=== PATIENT | male | born 1955 | race Caucasian/White ===

== ENCOUNTER 2021-09-26 15:58 | Inpatient (IN) | payer OTHER ==
[~2021-09-26] VITALS: Ht 188 cm; Wt 71.8 kg
--- NOTE | ~2021-09-26 | EMS ---
[address] [address] EMS Patient Care Report Name: ROD KHALIL Room #: 244-P ADM IN M.R.#: [id number] Admission: 09/26/21 Attend Phys: Nica Hi MD Discharge: Date of : 53 Report #: [id number] THIS REPORT FOR: //name// Report Transmitted: 09/29/2021 07:57 EMS Care Summary [place], [place]/[facility] Incident [id number] @ 09/26/2021 15:01 Incident Location [address] [facility] 320 Patient ROD KHALIL Male, 66 Years 1955 Patient Address [address] [id number] Patient History Cardiac Arrythmia,Hypertension (HTN),Pacemaker/AICD,Dialysis, Patient Allergies No known allergies,Codeine, Patient Medications Other, Chief Complaint MISSED DYALISIS Disposition Transported No Lights/[place] Dispatch Reason Sick Person Transported To [facility] Narrative MEDIC 30 WAS DISPATCHED TO THE ADDRESS LISTED PREVIOUSLY IN THIS REPORT ON A SICK PATIENT. UPON ARRIVAL, EMS OBSERVED ONE MALE PATIENT SITTING UPRIGHT IN BED. PATIENT HAD NOT COMPLETED HIS LAST THREE DIALYSIS TREATMENTS. PATIENT WAS THEN PLACED ON THE COT AND MOVED TO THE AMBULANCE WITHOUT INCIDENT. ONCE IN THE [address] [address] EMS Patient Care Report Name: ROD KHALIL Room #: 244-P ADM IN R.#: [id number] Admission: 09/26/21 Attend Phys: Nica Hi MD Discharge: Date of : 53 Report #: [id number] AMBULANCE, VITAL SIGN MONITORING CONTINUED. ONCE ENROUTE TO THE RECEIVING FACILITY ([facility] VITAL SIGN MONITORING CONTINUED AND RADIO REPORT WAS GIVEN. UPON ARRIVAL AT THE RECEIVING FACILITY, PATIENT WAS MOVED FROM THE AMBULANCE TO THE HOSPITAL COT WITHOUT INCIDENT. VERBAL REPORT WAS GIVEN TO THE PATIENT'S NURSE AND PATIENT CARE WAS TRANSFERRED. Initial Vitals @15:43P: 93,R: 16,BP: 152/68,Pain: 0/10,GCS: 15,SpO2: 59,Revised Trauma: 12, @15:49P: 88,R: 16,GCS: 15,SpO2: 95, Assessments @15:18MENTAL:Person Oriented,Time Oriented,Event Oriented,Place Oriented,SKIN:HEENT:LUNG SOUNDS:ABDOMEN:PELVIS//GI:EXTREMITIES:PULSE:NEURO: Impression Need for continuous medical supervision Procedures @15:44 Oxygen FlowRate: 8 Device: Nasal Cannula (NC) Response: UnchangedSucceeded @15:18 ALS Assessment Response: UnchangedSucceeded Timeline 14:45,Call Received 14:45,Dispatch Notified 15:01,Dispatched 15:01,En Route 15:14,On Scene 15:18,At Patient 15:18,ALS Assessment,Response: UnchangedSucceeded, 15:43,BP: 152/68 M,PULSE: 93,RR: 16 R,SPO2: 59 Ox,ETCO2: ,BG: ,PAIN: 0,GCS: 15, 15:44,Oxygen FlowRate: 8 Device: Nasal Cannula (NC) Response: UnchangedSucceeded, 15:49,BP: / M,PULSE: 88,RR: 16 R,SPO2: 95 Ox,ETCO2: ,BG: ,PAIN: ,GCS: 15, 15:53,Depart Scene 15:56,At Destination 16:35,Call Closed Disclaimer v1.1 Copyright 2020 [employer] This EMS Care Summary contains data elements from the applicable legal record (which may be displayed differently). It is designed to provide pertinent information for the following purposes: continuity of care, clinical quality, and state data reporting. The complete legal record is available to ED staff and administrators of the receiving hospital in [employer]'s Patient Tracker. All data [address] [address] EMS Patient Care Report Name: ROD KHALIL Room #: 244-P [facility] IN M.R.#: [id number] Admission: 09/26/21 Attend Phys: Nica Hi MD Discharge: Date of : 53 Report #: [id number] is provided "as is."
--- NOTE | ~2021-09-26 | EMS ---
[address] [address] EMS Patient Care Report Name: ROD KHALIL Room #: 244-P ADM IN M.R.#: [id number] Admission: 09/26/21 Attend Phys: Nica Hi MD Discharge: Date of : 53 Report #: [id number] THIS REPORT FOR: //name// Report Transmitted: 10/01/2021 12:57 EMS Care Summary [place], [place]/[facility] Incident [id number] @ 09/26/2021 15:01 Incident Location [id number] [place] [address] 320 Patient ROD KHALIL Male, 66 Years 1955 Patient Address [address] [place] [address] Patient History Cardiac Arrythmia,Hypertension (HTN),Pacemaker/AICD,Dialysis, Patient Allergies No known allergies,Codeine, Patient Medications Other, Chief Complaint MISSED DYALISIS Disposition Transported No Lights/[place] Dispatch Reason Sick Person Transported To [facility] Narrative MEDIC 30 WAS DISPATCHED TO THE ADDRESS LISTED PREVIOUSLY IN THIS REPORT ON A SICK PATIENT. UPON ARRIVAL, EMS OBSERVED ONE MALE PATIENT SITTING UPRIGHT IN BED. PATIENT HAD NOT COMPLETED HIS LAST THREE DIALYSIS TREATMENTS. PATIENT WAS THEN PLACED ON THE COT AND MOVED TO THE AMBULANCE WITHOUT INCIDENT. ONCE IN THE [address] [address] EMS Patient Care Report Name: ROD KHALIL Room #: 244-P ADM IN R.#: [id number] Admission: 09/26/21 Attend Phys: Nica Hi MD Discharge: Date of : 53 Report #: [id number] AMBULANCE, VITAL SIGN MONITORING CONTINUED. ONCE ENROUTE TO THE RECEIVING FACILITY ([facility]), VITAL SIGN MONITORING CONTINUED AND RADIO REPORT WAS GIVEN. UPON ARRIVAL AT THE RECEIVING FACILITY, PATIENT WAS MOVED FROM THE AMBULANCE TO THE HOSPITAL COT WITHOUT INCIDENT. VERBAL REPORT WAS GIVEN TO THE PATIENT'S NURSE AND PATIENT CARE WAS TRANSFERRED. Initial Vitals @15:43P: 93,R: 16,BP: 152/68,Pain: 0/10,GCS: 15,SpO2: 59,Revised Trauma: 12, @15:49P: 88,R: 16,GCS: 15,SpO2: 95, Assessments @15:18MENTAL:Place Oriented,Event Oriented,Time Oriented,Person Oriented,SKIN:HEENT:LUNG SOUNDS:ABDOMEN:PELVIS//GI:EXTREMITIES:PULSE:NEURO: Impression Need for continuous medical supervision Procedures @15:44 Oxygen FlowRate: 8 Device: Nasal Cannula (NC) Response: UnchangedSucceeded @15:18 ALS Assessment Response: UnchangedSucceeded Timeline 14:45,Call Received 14:45,Dispatch Notified 15:01,Dispatched 15:01,En Route 15:14,On Scene 15:18,At Patient 15:18,ALS Assessment,Response: UnchangedSucceeded, 15:43,BP: 152/68 M,PULSE: 93,RR: 16 R,SPO2: 59 Ox,ETCO2: ,BG: ,PAIN: 0,GCS: 15, 15:44,Oxygen FlowRate: 8 Device: Nasal Cannula (NC) Response: UnchangedSucceeded, 15:49,BP: / M,PULSE: 88,RR: 16 R,SPO2: 95 Ox,ETCO2: ,BG: ,PAIN: ,GCS: 15, 15:53,Depart Scene 15:56,At Destination 16:35,Call Closed Disclaimer v1.1 Copyright 2020 [employer] This EMS Care Summary contains data elements from the applicable legal record (which may be displayed differently). It is designed to provide pertinent information for the following purposes: continuity of care, clinical quality, and state data reporting. The complete legal record is available to ED staff and administrators of the receiving hospital in [employer]'s Patient Tracker. All data [address] [address] EMS Patient Care Report Name: ROD KHALIL Room #: 244-P [facility] IN M.R.#: [id number] Admission: 09/26/21 Attend Phys: Nica Hi MD Discharge: Date of : 53 Report #: [id number] is provided "as is."
[2021-09-26 16:21] VITALS: BP 146/64
[2021-09-26 16:56] LABS: ABSOLUTE NEUTROPHILS 5.7 thou/uL (1.4-8.2); BASOPHILS 1.2 % (0.0-2.0); EOSINOPHILS 12.7 % (0.0-3.0); HEMATOCRIT 30.3 % (42.0-52.0); HEMOGLOBIN 9.5 gm/dL (14.0-18.0); LYMPHOCYTES 11.2 % (24.0-44.0); MCH 32.2 pg (26.0-34.0); MCHC 31.3 g/dL (28.0-37.0); PLATELET COUNT 313 thou/uL (150-400); POLYS 67.9 % (36.0-66.0); RBC 2.94 mil/uL (4.50-6.00); RDW 20.7 % (10.5-14.5); WBC 8.4 thou/uL (4.0-11.0)
[2021-09-26 17:17] LABS: ALBUMIN 2.8 g/dL (3.4-5.0); CALCIUM 8.3 mg/dL (8.5-10.1); CREATININE 9.8 mg/dL (0.7-1.3); TOTAL BILIRUBIN 0.4 mg/dL (0.2-1.0); TOTAL PROTEIN 6.4 g/dL (6.4-8.2)
[2021-09-26 17:23] LABS: POTASSIUM 6.6 mmol/L (3.5-5.1)
[2021-09-26] MEDS ORDERED: ACETAMINOPHEN500 M1 PO (17:49)
[2021-09-26] MEDS ORDERED: LIPITOR40 MG PO (17:50)
[2021-09-26] MEDS ORDERED: AMLODIPINE BESY10 MG PO (17:50)
[2021-09-26] MEDS ORDERED: ROCALTROL0.25 MCG PO (17:50)
[2021-09-26] MEDS ORDERED: CALCIUM ACETAT667 MG PO (17:51)
[2021-09-26] MEDS ORDERED: ELIQUIS5 MG PO (17:52)
[2021-09-26] MEDS ORDERED: GABAPENTIN100 MG PO (17:52)
[2021-09-26] MEDS ORDERED: MIRALAX119 GM PO (17:53)
[2021-09-26] MEDS ORDERED: TOPROL XL25 MG PO (17:53)
[2021-09-26] MEDS ORDERED: OXYCODONE HCL5 MG PO (17:54)
[2021-09-26] MEDS ORDERED: SPIRIVA18 MCG INH (17:55)
[2021-09-26] MEDS ORDERED: SYMBICORT160 MCG/4. INH (17:55)
[2021-09-26] MEDS ORDERED: SENNA-DOCUSATE1 EAC1 PO (17:55)
[2021-09-26] MEDS ORDERED: PROAIR HFA8.5 GM INH (17:55)
[2021-09-26 19:09] LABS: ANISOCYTOSIS 1+; MACROCYTES 1+
[2021-09-26 21:16] VITALS: BP 101/37
[2021-09-27] VITALS (9 sets, daily range): BP systolic 123–139; BP diastolic 32–39
[2021-09-27 02:14] LABS: BE(vivo) -3.2 mmol/L (-2 to +3); HCO3 24.3 mmol/L (22.0-26.0); PCO2 57.7 mmHg (35.0-45.0); PO2 67.1 mmHg (80.0-100.0); sO2 89.7 % (92.0-98.0)
[2021-09-27 02:15] LABS: pH 7.243 (7.360-7.450)
[2021-09-27 02:32] LABS: ALBUMIN 2.4 g/dL (3.4-5.0); CALCIUM 8.2 mg/dL (8.5-10.1); CREATININE 10.1 mg/dL (0.7-1.3); DIRECT BILIRUBIN 0.1 mg/dL (<0.1-0.2); TOTAL BILIRUBIN 0.3 mg/dL (0.2-1.0); TOTAL PROTEIN 5.6 g/dL (6.4-8.2)
[2021-09-27 02:37] LABS: POTASSIUM 6.4 mmol/L (3.5-5.1)
[2021-09-27 07:37] LABS: CREATININE 10.4 mg/dL (0.7-1.3)
[2021-09-27 07:42] LABS: POTASSIUM 6.3 mmol/L (3.5-5.1)
--- NOTE | 2021-09-27 08:53 | NUR ---
PT TOLD DIALYSIS NURSE THAT HE WAS TOLD HE TESTED POSITIVE FOR COVID, UPDATED DIALYSIS NURSE THAT PT IS NEGATIVE HERE. CALLED AND SPOKE WITH NURSING STAFF AT [facility] WHO ALSO REPORTS THAT HE WAS TESTED YESTERDAY THERE AND HIS RESULTS ARE ALSO NEGATIVE
--- NOTE | 2021-09-27 11:22 | NUR ---
DIALYSIS NURSE VERÓNICA STATES THAT HE EVALUATED THE PT'S FISTULA AND REPORTS IT WILL NEED DE-COLTTED WHILE HERE, THAT IT IS NOT FUNCTIONING
--- NOTE | 2021-09-27 12:29 | EKG ---
[address] [place] [address] ELECTROCARDIOGRAM REPORT Name: ROD KHALIL Room #: 170-1 ADM IN M.R.#: [id number] Admission: 09/26/21 Attend Phys: Nury Matta MD Discharge: Date of : 53 Report #: [id number] [facility] ED Test Date: 2021-09-26 Test Time: 17:30:08 Pat Name: ROD KHALIL Department: Room: 170 Gender: M Medicare Sales Representative: mpark : 1955 Requested By: Kanchan Su Order Number: [id number] MD: Fabián Yeh Measurements Intervals [place] Rate: 60 P: AR: 310 QRS: -76 QRSD: 126 T: -54 QT: 463 QTc: 463 Interpretive Statements Atrial-paced rhythm Nonspecific IVCD with LAD LVH with secondary repolarization abnormality No previous ECG available for comparison Electronically Signed On 09-27-2021 12:29:27 RED CROSS EXECUTIVE DIRECTOR by Fabián Yeh [email or web address] <ELECTRONICALLY SIGNED> By: Fabián Yeh MD 09/27/21 1229 1730 1730 Fabián Yeh MD /EPI
[2021-09-28] VITALS (24 sets, daily range): BP systolic 124–152; BP diastolic 31–54
--- NOTE | 2021-09-28 00:14 | NUR ---
PT TRANSFERRED TO ICU AT 2204. PT ON 4L NC. CAME TO UNIT WITH GLASSES, CELL PHONE, SOCKS, PANTS, SHIRT, UNDERWEAR, AND SLING FOR TRANSPORTATION.
[2021-09-28 07:36] LABS: CALCIUM 8.9 mg/dL (8.5-10.1); MAGNESIUM 1.6 mg/dL (1.8-2.4)
[2021-09-28 07:37] LABS: CREATININE 7.1 mg/dL (0.7-1.3)
[2021-09-28 07:39] LABS: POTASSIUM 6.2 mmol/L (3.5-5.1)
--- NOTE | 2021-09-28 08:46 | HC ---
[facility] [place] [address] [address] CONSULTATION Name: ROD KHALIL Room #: 244-P ADM IN M.R.#: [id number] Admission: 09/26/21 Attend Phys: Nury Matta MD Discharge: Date of : 53 Report #: [id number] THIS REPORT FOR: cc: Armando Harrison MD, Dennis R MD Park,Fabián Lazcano MD ~ DATE OF SERVICE: 09/27/2021 INDICATION: Dyspnea. HISTORY OF PRESENT ILLNESS: This is a 66-year-old gentleman with a history of end-stage renal disease, permanent pacemaker, surgical ASD repair at the age of 16, hypertension, anemia, COPD, hyperlipidemia, who presented with increasing shortness of breath and cough. It seems that he missed two dialysis treatments due to an apparent diagnosis of COVID. In the ER, he underwent emergent dialysis with resolution of his dyspnea. He denies any episodes of chest pains, lightheadedness or palpitations. Troponin level was minimally elevated. PAST MEDICAL HISTORY: ASD repair at the age of 16. End-stage renal disease, on hemodialysis. Resides at half-way facility in [place]. History of permanent pacemaker, details unavailable. History of chronic obstructive pulmonary disease, hypertension, hyperlipidemia. ALLERGIES: CODEINE, PENICILLIN. MEDICATIONS: Include amlodipine 10 mg, Lipitor 40 mg, Eliquis 5 mg twice a day, metoprolol 25 mg daily. SOCIAL HISTORY: Previous smoker, quit several months ago. FAMILY HISTORY: Noncontributory. REVIEW OF SYSTEMS: A full 10-point review of systems performed. Only the pertinent positives and negatives are described in the HPI. PHYSICAL EXAMINATION: VITAL SIGNS: Blood pressure is 120/60, heart rate is 60 beats per minute. GENERAL APPEARANCE: He is a well-developed, well-nourished male in no acute distress. HEENT: Normocephalic, atraumatic. NECK: Supple. LUNGS: Diminished breath sounds at the bases. CARDIAC: Regular rate and rhythm, S1, S2 positive. ABDOMEN: Soft, nontender. EXTREMITIES: Positive edema, no cyanosis. [facility] [address] [place] [address] CONSULTATION Name: ROD KHALIL Room #: 244-P [facility] IN M.R.#: [id number] Admission: 09/26/21 Attend Phys: Nury Matta MD Discharge: Date of : 53 Report #: [id number] LABORATORY VALUES: Peak troponin is 172. White count is 8.4, hemoglobin is 9.5. DIAGNOSTIC DATA: ECG reveals atrial paced rhythm, T-wave inversions in the precordial leads. ASSESSMENT AND PLAN: 1. Dyspnea attributed to fluid overload from renal failure. Improved after emergent dialysis. 2. Positive troponins in the setting of end-stage renal disease and fluid overload. May be related to oxygen supply/demand mismatch. We will need to proceed with an ischemic evaluation. Also needs an echo in view of history of ASD repair. 3. Hypertension, continue medications. 4. Hypercholesterolemia. Continue statin therapy. 5. Chronic obstructive pulmonary disease, he quit smoking several months ago. <ELECTRONICALLY SIGNED> By: Fabián Yeh MD 09/28/21 0846 1213 1355 Fabián Yeh MD /nt
--- NOTE | 2021-09-28 09:56 | NUR ---
DELEON D/C PER ORDERS, 50 ML WAS IN DELEON AT THAT TIME.
--- NOTE | 2021-09-28 10:01 | NUR ---
Nutrition: RD received notification of wounds, wound care consult pending. Pt reports these are on his knees due to a fall after leaving dialysis. S/P declotting of AV fistula. Pt missed last 2 dialysis sessions. Hyperkalemia present. Pt currently on 2 gm Na diet, needs full renal restrictions. Will add. pt did report stable weights and excellent appetite. Agrees to trial one nepro daily to assist with healing. Physician has documented severe malnutrition-RD will defer. Follow for full wound assessment report but place as low risk with interventions in place.
--- NOTE | 2021-09-28 13:33 | 2DMMODE ---
[facility] [address] [address] 2 D/M-MODE ECHOCARDIOGRAM Name: ROD KHALIL Room #: 244-P ADM IN M.R.#: [id number] Admission: 09/26/21 Attend Phys: Nica Hi MD Discharge: Date of : 53 Report #: [id number] THIS REPORT FOR: cc: Armando Harrison MD, Dennis R MD Park, Jin S. MD ~ APPROVED REPORT Study performed: 09/28/2021 12:39:51 EXAM: Comprehensive 2D, Doppler, and color-flow Echocardiogram Patient Location: ICU Room #: 244 Status: routine BSA: 1.98 HR: 86 bpm BP: 152/45 mmHg Rhythm: Pacemaker Other Information Study Quality: Good Indications Congestive Heart Failure COPD Diabetes Dyspnea Pacemaker Hypertension/HDD 2D Dimensions RVDd: 56.94 mm IVSd: 12.92 (7-11mm) LVOT Diam: 19.63 (18-24mm) LVDd: 47.45 mm PWd: 12.56 (7-11mm) Ascending Ao: 28.99 (22-36mm) LVDs: 30.58 (25-40mm) Left Atrium: 51.37 (27-40mm) Aortic Root: 29.98 mm IVC: 24.00 mm Volumes Left Atrial Volume (Systole) Single Plane 4CH: 127.23 mL Single Plane 2CH: 156.08 mL LA ESV Index: 77.00 mL/m2 [facility] [address] [address] 2 D/M-MODE ECHOCARDIOGRAM Name: ROD KHALIL Room #: 244-P [facility] IN M.R.#: [id number] Admission: 09/26/21 Attend Phys: Nica Hi, Discharge: Date of : 53 Report #: [id number] Aortic Valve AoV Peak Roman.: 2.00 m/s AO Peak Gr.: 16.82 mmHg LVOT Max P.20 mmHg AO Mean Gr.: 8.51 mmHg LVOT Mean P.59 mmHg AO V2 Mean: 1.36 m/s LVOT Max V: 1.12 m/s AO V2 VTI: 46.38 cm LVOT Mean V: 0.74 m/s ERMA (VTI): 1.70 cm2 LVOT V1 VTI: 26.12 cm ERMA Vmax: 1.69 cm2 SV (LVOT): 78.99 mL Mitral Valve MV Peak Gr.: 11.97 mmHg MV Mean Gr.: 5.21 mmHg E/A Ratio: 1.8 MV Decel. Time: 239.26 ms MV E Max Roman.: 1.50 m/s MV A Roman.: 0.84 m/s MV Max Roman.: 1.73 m/s MV Mean Roman.: 1.07 m/s MV VTI: 502.42 mm MVA VTI: 157.21 mm2 MV PHT: 69.39 ms MVA (PHT): 2.45 cm2 IVRT: 83.04 ms Pulmonary Valve PV Peak Roman.: 2.41 m/s PV Peak Gr.: 23.28 mmHg Pulmonary Vein P Vein S: 0.74 m/s P Vein A: 0.28 m/s P Vein D: 0.68 m/s P Vein A Dur.: 73.8 msec P Vein S/D Ratio: 1.09 Tricuspid Valve TR Peak Roman.: 4.01 m/s TR Peak Gr.: 64.38 mmHg PA Pressure: 74.00 mmHg Left Ventricle The left ventricle is normal size. Mild concentric left ventricular hypertrophy. Left ventricular systolic function is hyperdynamic. LVEF is >70%. This study is not technically sufficient to allow evaluation of the LV diastolic function. Right Ventricle Right ventricle is dilated. Right ventricular systolic function is grossly normal. Pacemaker lead is present in the right ventricle. [facility] [place] [address] [place] [address] 2 D/M-MODE ECHOCARDIOGRAM Name: ROD KHALIL Room #: 244-P [facility] IN .R.#: [id number] Admission: 09/26/21 Attend Phys: Nica Hi, Discharge: Date of : 53 Report #: [id number] Atria Left atrium is dilated. Right atrium is dilated. Pacemaker lead is present in the right atrium. Aortic Valve The aortic valve is normal in structure. Aortic valve is calcified. Trace aortic regurgitation. There is no aortic valvular stenosis. Mitral Valve The mitral valve is normal in structure. There is mitral annular calcification. Mild mitral regurgitation. Mild mitral stenosis. Tricuspid Valve The tricuspid valve is normal in structure. There is mild tricuspid regurgitation. Estimated PAP 66 mmHg. Pulmonic Valve The pulmonary valve is normal in structure. Pulmonic stenosis. Mild pulmonic regurgitation. Great Vessels The aortic root is normal in size. IVC is dilated and collapses <50% with inspiration. Pericardium There is no pericardial effusion. <Conclusion> The left ventricle is normal size. Mild concentric left ventricular hypertrophy. Left ventricular systolic function is hyperdynamic. Right ventricle is dilated. Pacemaker lead is present in the right ventricle. Left atrium is dilated. Aortic valve is calcified. There is mitral annular calcification. Mild mitral regurgitation. There is mild tricuspid regurgitation. Estimated PAP 66 mmHg. <ELECTRONICALLY SIGNED> By: Fabián Yeh MD 09/28/21 1332 31 31 Fabián Yeh MD /INF
--- NOTE | 2021-09-28 16:30 | NUR ---
PT ADMITTED RELATED TO CHF, RENAL FAILURE, HYPERKALEMIA. CM REVIEWED CHART AND SPOKE WITH CARE TEAM. CM MET WITH PT AT [facility] THIS DAY. PT APPEARED TO BE A&O X4. CM ROLE INTRODUCED. 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 AND PRIOR TO THAT HE HAD BEEN AT [facility]. PT INICATED HE HAS AN APART[place] AND THAT HE PLANS TO RETURN THERE AFTER REHAB. PT HAS APARTMENT AT [address] PT INDICATED HE GOES TO DIALYSIS AT [facility], SAT AT [facility] CHAIR TIME 11:00-3:00. PT INDICTED HIS SISTER IS A GOOD CONTACT FOR HIM ARACELIS MEZA SHE LIVES IN . HE INDICATED EX IS ALSO A CONTACT RANJANA KHALIL [phone] BUT SHE LIVE IN [place] AND TAKES CARE OF HER MOM. 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 PT INDICATED HE ANTICIPATES RETURING TO [facility] TO RESUME REHAB SERVIES ONCE MEDICALLY STABLE. CM LEFT VM FOR DON AT FACILITY. CM FOLLOWING.
--- NOTE | 2021-09-28 18:01 | NUR ---
PATIENT WAS INCONTINENT A SMALL BM TODAY AND WAS CLEANED UP WHEN PT WAS HERE HELPING THE PATIENT TO STAND AT BEDSIDE. PATIENT WAS DOING WELL ON ROOM AIR FOR MOST OF THE DAY RT CAME TO DO A TREATMENT AND PLACE THE PATIET ON 3L NC. PATIENT IS GOING TO IR THIS EVENING TO HAVE HIS FISTULA DONE, SO HOLDING HIS DINNER. KENNY IS RESTING IN BED WIHT CALL PEREZ IN REACH.
[2021-09-29 04:12] VITALS: BP 139/49
[2021-09-29 07:09] LABS: CALCIUM 8.9 mg/dL (8.5-10.1)
[2021-09-29 07:12] LABS: CREATININE 4.6 mg/dL (0.7-1.3)
[2021-09-29 07:13] LABS: ALBUMIN 2.6 g/dL (3.4-5.0); PHOSPHORUS 7.1 mg/dL (2.6-4.7)
[2021-09-29 08:00] VITALS: BP 149/41
[2021-09-29 08:21] LABS: MAGNESIUM 2.1 mg/dL (1.8-2.4)
--- NOTE | 2021-09-29 08:57 | NUR ---
CALLED IR NURSE TO ASK ABOUT DECLOTTING THE PT'S FISTULA. SHE STATED THEY DO NOT HAVE A DOCTOR TODAY AND THAT HE IS SCHEDULE FIRST THING TOMORROW TO HAVE IT DECLOTTED. PT IS TO BE NPO OF MIDNIGHT. SPOKE TO DR. JEWELL AND SHE STATED SHE WANTS THE PT TO HAVE DIALYSIS TOMORROW AFTER THE PROCEDURE.
[2021-09-29 12:00] VITALS: BP 140/49
--- NOTE | 2021-09-29 14:28 | HC ---
[facility] [place] [address] CONSULTATION Name: CATHERINEHONGROD Ashley Room #: 244-P ADM IN M.R.#: [id number] Admission: 09/26/21 Attend Phys: Nica Hi MD Discharge: Date of : 53 Report #: [id number] THIS REPORT FOR: cc: Armando Harrison MD, Dennis R MD Althoff, Jeffrey R. MD ~ DATE OF SERVICE: 09/28/2021 CHIEF COMPLAINT: Sacral ulceration. HISTORY OF PRESENT ILLNESS: This is a 66-year-old male patient who I am asked to see in the ICU for sacral and gluteal pressure ulcerations. He lives at [facility] and has had increasing shortness of breath. He has had a recent fall and with bilateral patellar fractures and subsequent surgical intervention. He is wearing braces on his legs. He is also noted to have some breakdown on his gluteal sacral region. I have been asked to see him with regard to ongoing wound care. PAST MEDICAL HISTORY: Positive for patellar fractures as detailed above, history of COVID-19 infection, acute on chronic hypoxic respiratory failure, transaminitis, end-stage renal disease requiring hemodialysis, COPD, hypotension, hyperlipidemia, history of complete heart block and severe protein-calorie malnutrition. MEDICATIONS: Include acetaminophen, amlodipine, atorvastatin, Rocaltrol, apixaban, gabapentin, metoprolol, oxycodone, albuterol, senna, Spiriva and Symbicort. ALLERGIES: CODEINE AND PENICILLIN. SOCIAL HISTORY: The patient lives in a nursing care facility, is a previous smoker. Past history of alcohol use. FAMILY HISTORY: Noncontributory. REVIEW OF SYSTEMS: CONSTITUTIONAL: The patient denies fever, chills or weight loss. NEUROLOGICAL: The patient denies focal weakness, numbness, or tingling EYES: The patient denies visual changes, redness or drainage. ENT: The patient denies earache, nasal drainage or sore throat. CARDIOVASCULAR: The patient denies chest pain or palpitations. PULMONARY: The patient complains of mild shortness of breath. Denies cough or sputum production. GASTROINTESTINAL: The patient denies nausea, vomiting, diarrhea, or abdominal pain. ORTHOPEDIC: The patient complains of pain in both knees as well as gluteal [address] [address] CONSULTATION Name: ROD KHALIL Room #: 244-P [facility] IN M.R.#: [id number] Admission: 09/26/21 Attend Phys: Nica Hi MD Discharge: Date of : 53 Report #: [id number] ulceration. Others systems in a 14-point review of systems are negative. PHYSICAL EXAMINATION: VITAL SIGNS: The patient's vital signs include temperature 36.7, pulse rate of 64, respiratory rate of 12, blood pressure 153/45. GENERAL: This is a chronically ill-appearing male patient who appears to be in minimal distress. HEENT: Head normocephalic. Nose and throat clear. NECK: Supple. LUNGS: Diminished. HEART: Irregular. ABDOMEN: Soft and nontender. EXTREMITIES: Examination of the sacral-gluteal region demonstrates multiple areas of stage I pressure ulceration to the sacral-gluteal region, nothing acutely open presently. He has surgical incisions to both knees. He is wearing hinged knee braces bilaterally. I do not find any evidence of breakdown currently. NEUROLOGIC: The patient is alert and oriented. LABORATORY STUDIES: Include sodium 140, potassium 6.2, chloride 102, CO2 of 28, BUN 72, creatinine 7.1. White blood cell count 8.4 with a hemoglobin of 9.5. Albumin is low at 2.4. CLINICAL IMPRESSION: 1. Stage I pressure ulceration to the sacral region. 2. Recent surgical repair of bilateral patellar fractures with surgical incision lines that appeared to be intact. 3. Acute on chronic hypoxic respiratory failure. 4. History of transaminitis. 5. End-stage renal disease requiring hemodialysis. 6. Moderate to severe protein-calorie malnutrition. RECOMMENDATIONS: At this point in time, patient will be started on barrier cream b.i.d. and p.r.n., otherwise left open to air, with low air loss surface with q. 2 hour turning and positioning. Recommend careful monitoring of the skin under his braces bilaterally for any further sign of breakdown. He will need aggressive nutritional support. I appreciate being asked to see him in consultation. <ELECTRONICALLY SIGNED> By: Marcos Man MD 09/29/21 1428 1146 [id number] Marcos Man MD /nt
[2021-09-29 16:00] VITALS: BP 122/44
--- NOTE | 2021-09-29 16:32 | NUR ---
Cm reviwed chart and spoke with pt's nurse. Иван called [facility] again this am with no answer.. Cm called Brandyn BAEZ's cell number and he indicated he is no longer at that facility that they have another DON now. Cm faxed them clinical update on Pt. Cm called [facility] and provided them an update. Cm faxed clinic to them as well. Pt still with temp dialysis catheter. Looks like it is anticpated that pt will get new tunneled catheter placed tomorrow. Иван called [facility] again this afternoon with no answer. It is anticpated that pt will return to [facility] to resume skilled rehab services and dialysis with [facility] once medically stable.
--- NOTE | 2021-09-29 18:00 | NUR ---
PT PROGRESSING TOWARD PLAN OF CARE EVIDENCED BY MED SURG STATUS, STABLE VS, AND UNALTERED MENTAL STATUS. PT WAS PLEASANT, CALM, AND COOPERATIVE THIS SHIFT. PT IS SCHEDULED FOR IR DIALYSIS CATHETER DE-CLOTTING 09/30 MORNING, FOLLOWED BY DIALYSIS TREATMENT AND CARDIAC STRESS TEST. PT HAS NPO ORDERS AFTER MIDNIGHT UNTIL ALL EXAMS ARE COMPLETED. PHYSICAL THERAPY AND OCCUPATIONAL THERAPY SAW PT TODAY. PT C/O LEFT LEG PAIN AND REFUSED TO WORK WITH PHYSICAL THERAPY AT THAT TIME. WILL CONTINUE TO MONITOR AND FOLLOW PLAN OF CARE.
[2021-09-29 20:55] VITALS: BP 137/42
--- NOTE | 2021-09-30 03:15 | NUR ---
PT BEEN RESTING IN NO ACUTE DISTRESS.A/OX4.VSS.ON O2 AT 3LITERS PNC,SATS ADEQUATE.DENIES ANY SHORTNESS OF BREATH.NONE NOTED BY THE RN.ASSESSMENT COMPLETED DOCUMENTED.PT KEPT NPO AFTER MIDNOC FOR FISTULA DECLOTTING AND NUC MED STRESS TEST TO BE COMPLETED TODAY.BILATERAL LEG BRACES INPLACE.PT DENIES PAIN OR ANY CONCERNS AT THIS TIME.WILL CONT W/POC.
[2021-09-30 04:57] VITALS: BP 154/53
[2021-09-30 15:31] VITALS: BP 170/51
--- NOTE | 2021-09-30 16:33 | NUR ---
Updated [facility] with clinical faxed information. Left message with [facility] business office to determine if need for skilled auth once patient stable. [facility] following.
--- NOTE | 2021-09-30 16:52 | NUR ---
PATIENT PROGRESSING TOWARDS THE PLAN OF CARE. FISTULAGRAM DECLOTTED TODAY. PER IR NURSE, SUTURES TO BE TAKEN OUT TOMORROW WELL THE TEMPORARY DIALYSIS CATHETER BY IR TECH. STRESS TEST TO BE DONE FIRST THING IN THE MORNING PER PERFORMING HOSPITAL PERSONNEL. 2 L TAKEN OFF PATIENT PER DIALYSIS NURSE.
[2021-09-30 20:32] VITALS: BP 149/43
--- NOTE | 2021-10-01 03:41 | NUR ---
PT BEEN RESTING IN NO ACUTE DISTRESS.A/OX4.VSS.NPO AFTER MIDNOC FOR NUC MED STRESS TEST TODAY.PT TO DISCHARGE TO [facility] AFTER THE STRESS TEST.ASSESSMENT COMPLETED DOCUMENTED.
[2021-10-01 05:44] VITALS: BP 141/56
[2021-10-01 08:10] VITALS: BP 108/61
--- NOTE | 2021-10-01 10:49 | NUR ---
CARE TEAM INDICATED THAT PT IS TO HAVE NUC STRESS TEST THIS DAY. IT HAD BEEN INDICATED THAT PT WOULD LIKELY BE ABLE TO DC POST PROCEDURE. CM INDICATED TO HOSPITALIST THAT [facility] WOULD LIKELY NEED AUTH FOR PT TO RETURN SKILLED. CM TEAM HAS REACHED OUT TO [facility] MULTIPLE TIMES DIALY AND LEFT VOICEMAILS REGARDING THIS FACT WITH NO RESPONSE. PATSY CALLED [facility] ADMISSIONS LIAISON WITH [facility] AND INDICATED THE ABOVE AND SHE PROVIDED NEW DON'S PHONE NUMBER SOLANGE . CM HAS CALLED THREE TIMES THIS AM WITH NO ANSWER AND VM ISN'T SET UP. CM ALSO LEFT VM WITH OPERATOR VACUUM AND CM YESTERDAY LEFT VM WITH PREPARATOR. CM FOLLOWING.
[2021-10-01 12:00] VITALS: BP 104/39
[2021-10-01 21:30] VITALS: BP 128/43
--- NOTE | 2021-10-02 05:01 | NUR ---
ASSUMED PT CARE AT 1900, ALERT AND ORIRNTED, ABLE TO MAKE NEEDS KNOWN, ASSESSMENTS CHARTED, PT O2SATS IN THE MID 80S ON ROOM AIR, PT PLACED ON 2L NC, 02SAT 93-96%, GOOD APPETITE, SCHEDULED TYL GIVEN FOR PAIN WITH RELIEF, NO DISTRESS NOTED, PLAN TO TRANSFER TO [facility] WHEN BED IS AVAILABLE, WILL CONTINUE TO MONITOR
[2021-10-02 07:39] VITALS: BP 112/55
[2021-10-02 13:40] VITALS: BP 119/53
[2021-10-02 20:55] VITALS: BP 144/54
--- NOTE | 2021-10-03 02:28 | NUR ---
alert and oriented. pleasant. Given scheduled tylenol for pain.Satting okay on room air-no distress.some edema to eliz ankles.eliz knee immobilizers in place. ANGELINE fistula with good bruit and thrill. Eating ok w/o any nausea or vomiting.Calls with needs.
[2021-10-03 08:10] VITALS: BP 136/64
--- NOTE | 2021-10-03 10:14 | NUR ---
Assumed care of pt at 0700. Pt a&ox4. Denies pain. Bilateral knee immobilizers in place. RA. Good appetite. Waiting on ins auth for discharge. Call light within reach. Fall precautions in place. Will continue to monitor.
[2021-10-03 16:58] VITALS: BP 129/52
[2021-10-03 19:33] VITALS: BP 123/47
--- NOTE | 2021-10-04 05:35 | NUR ---
patient aox4 makes needs known. patient has both braces on both knees. patient is continent.patient is able to turn himself. fall precaution within reach. patient in bed asleep at this time breathing regular and unlaboured,
[2021-10-04 07:00] VITALS: BP 122/48
--- NOTE | 2021-10-04 09:03 | NUR ---
Assumed care of pt at 0700. Pt a&ox4. Denies pain. Scheduled for hemodialysis tomorrow 10/05. Bilateral knee immobilizers in place. Call light within reach. Fall precautions in place. Will continue to monitor.
[2021-10-04 19:11] VITALS: BP 141/89
[2021-10-05 05:28] VITALS: BP 97/47
[2021-10-05 06:06] LABS: HEP B SURFACE Ab(ANTI-HBS Reactive (()); HEPATITIS B SURFACE AG Negative (Negative)
[2021-10-05 07:00] VITALS: BP 126/78
--- NOTE | 2021-10-05 07:43 | NUR ---
PT LYING IN BED. LORTAB PROVIDING PAIN RELIEF. SNACKS PROVIDED. VOIDING PER URINAL. RESTING COMFORTABLY. NO NEEDS VOICED. CALL LIGHT WITHIN REACH. FREQUENT OBSERVATION.
--- NOTE | 2021-10-05 10:11 | NUR ---
Assumed care of pt at 0700. Pt a&ox4. On 2L O2. Dialysis scheduled for today. Bilateral knee immobilizers in place. Uses urinal. Asks for frequent snacks. Call light within reach. Fall precautions in place. Will continue to monitor
--- NOTE | 2021-10-05 11:33 | NUR ---
Followup: pt with excellent intake, 100% all mealsand requests for additional snacks. Chart reviewed and likely discharge very soon. Sacral wound assessed as stage I per wound care. Remains low nutrition risk
--- NOTE | 2021-10-05 16:29 | NUR ---
spoke with sandy at [facility], ramone, cat to take back on o2 if needed. Requested rest and exercise. Need pt and ot eval to send updates to [facility] for skilled auth. will cont following as needed. getting dialysis today.
[2021-10-05 21:57] VITALS: BP 145/57
--- NOTE | 2021-10-06 06:13 | NUR ---
Pt. rested quietly at intervals during the night when checked on during frequent rounds. He offers no c/o pain or discomfort. Bed alarm is on.
[2021-10-06 07:48] VITALS: BP 121/44
--- NOTE | 2021-10-06 10:53 | NUR ---
ASSUMED CARE OF PT AT 0700 THIS MORNING. PT IS A/OX4 WITH NO OTHER ISSUES. PT HAS BRACES ON BILAT KNEES DUE TO FRACTURES FROM FALL 60 DAYS AGO. PT HAS LT UPPER ARM FISTULA FOR DIALYSIS. SOME REDNESS TO BILAT BUTTOCKS WITH Z-PRESLEY. ASSESSMENTS ARE CHARTED AND OTHERWISE UNREMARKABLE. LUNG SOUNDS ARE WHEEZES AND CONGESTION. FALL PRECAUTIONS ARE IN PLACE. CALL LIGHT AND OTHER NEEDS ARE IN REACH. MEDS AND TX GIVEN NEEDED AND SCHEDULED. WILL MONITOR AND NOTE ANY CHANGES. PT IS BE DISCHARGED LATER TODAY TO GO TO [facility] FOR REHAB. WAITING FOR DISCHARGE ORDERS AND TRANSPORT TIME FROM CASE MANAGEMENT.
--- NOTE | 2021-10-06 11:23 | NUR ---
Discussed during los with physician. he is ready for dc. Cm notified [facility]. o2 down to 1 L/nc. chart copy requested. Bedside nurse to call report to [phone]. Dc orders fax to [phone]. Иван spoke with [facility] and he agrees with dcp for today. иван called sister fabby [phone]
== END 2021-10-06 16:34 | DRG 252 ==
LOC: ER 15:58 → ICU 18:13 → EROBS 18:13 → ICU 09-27 22:45 → 4S 10-02 17:00
PROVIDERS: Emergency Medicine; Internal Medicine; Internal Medicine Nephrology; Nurse Practitioner Family; ADMIT Internal Medicine; ATTEND Internal Medicine
PROC: B5181ZA Fluoroscopy of Superior Vena Cava using Low Osmolar Contrast, Guidance (ICD-10-PCS; principal; 2021-09-27)
PROC: 02HV33Z Insertion of Infusion Device into Superior Vena Cava, Percutaneous Approach (ICD-10-PCS; principal; 2021-09-27)
PROC: B548ZZA Ultrasonography of Superior Vena Cava, Guidance (ICD-10-PCS; principal; 2021-09-27)
PROC: 5A1D70Z Performance of Urinary Filtration, Intermittent, Less than 6 Hours Per Day (ICD-10-PCS; 2021-09-28)
PROC: 03WY37Z Revision of Autologous Tissue Substitute in Upper Artery, Percutaneous Approach (ICD-10-PCS; 2021-09-30)
PROC: 3E03317 Introduction of Other Thrombolytic into Peripheral Vein, Percutaneous Approach (ICD-10-PCS; 2021-09-30)
PROC: B51W1ZZ Fluoroscopy of Dialysis Shunt/Fistula using Low Osmolar Contrast (ICD-10-PCS; 2021-09-30)
DX: T82.868A Thrombosis due to vascular prosthetic devices, implants and grafts, initial encounter (principal); J96.21 Acute and chronic respiratory failure with hypoxia; E43 Unspecified severe protein-calorie malnutrition; N18.6 End stage renal disease; I44.2 Atrioventricular block, complete; R77.8 Other specified abnormalities of plasma proteins; E87.5 Hyperkalemia; E83.42 Hypomagnesemia; L89.151 Pressure ulcer of sacral region, stage 1; J44.9 Chronic obstructive pulmonary disease, unspecified; I50.9 Heart failure, unspecified; E78.5 Hyperlipidemia, unspecified; E87.70 Fluid overload, unspecified; E78.00 Pure hypercholesterolemia, unspecified; Z66 Do not resuscitate; R74.01 Elevation of levels of liver transaminase levels; I95.9 Hypotension, unspecified; I11.0 Hypertensive heart disease with heart failure; M62.462 Contracture of muscle, left lower leg; M62.461 Contracture of muscle, right lower leg; Y92.89 Other specified places as the place of occurrence of the external cause; R53.81 Other malaise; D64.9 Anemia, unspecified; Y83.8 Other surgical procedures as the cause of abnormal reaction of the patient, or of later complication, without mention of misadventure at the time of the procedure; Z99.2 Dependence on renal dialysis; Z88.6 Allergy status to analgesic agent; Z88.0 Allergy status to penicillin; Z95.0 Presence of cardiac pacemaker; Z87.891 Personal history of nicotine dependence; Z95.1 Presence of aortocoronary bypass graft; Z79.01 Long term (current) use of anticoagulants; Z86.16 Personal history of COVID-19; Z20.822 Contact with and (suspected) exposure to COVID-19
CPT/HCPCS: 10078; 10195; 10196; 10203; 32100